=== PATIENT | female | born 1945 | race Caucasian/White ===

== ENCOUNTER 2020-06-07 07:08 | Observation (INO) | payer MEDICARE ==
[2020-06-07] MEDS ORDERED: Acetaminophen 500 MG TAB ONE (07:34)
[2020-06-07 09:41] LABS: #Basophils 0.1 10x3/uL (0.0-0.2); #Eosinphils 0.1 10x3/uL (0.0-0.5); #Monocytes 0.6 10x3/uL (0.0-1.1); #Neutrophils 6.5 10x3/uL (1.5-8.4); %Basophils 0.8 % (0.0-2.0); %Eosinophils 0.9 % (0.0-6.0); %Lymphocytes 8.6 % (18.0-47.0); %Monocytes 6.9 % (0.0-10.0); %Neutrophils 82.2 % (40.0-75.0); Hemoglobin 13.3 g/dL (12.0-15.5); Mean Corpuscular HGB CONC 33.8 g/dL (32.0-36.0); Mean Corpuscular Hemoglobin 31.5 pg (27.0-33.0); Mean Corpuscular Volume 93.1 fl (81.6-98.3); Mean Platelet Volume 12.4 fl (7.4-10.4); Platelet Count 149 10x3/uL (150-450); RBC Distribution Width 13.2 % (11.5-14.5); Red Blood Cell (RBC) Count 4.22 10x6/uL (3.90-5.03); White Blood Cell (WBC) Count 7.9 10x3/uL (3.5-10.5)
[2020-06-07 09:52] LABS: Anion Gap 13 mmol/L (10-20); BUN (Urea Nitrogen) 12 mg/dL (9.8-20.1); Calc. Creatinine Clearance 0 mL/min (70-130); Calcium 8.7 mg/dL (7.8-10.44); Carbon Dioxide 27 mmol/L (23-31); Chloride 107 mmol/L (98-107); Glucose 118 mg/dL (83-110); Potassium 3.7 mmol/L (3.5-5.1); Sodium 143 mmol/L (136-145)
[2020-06-07] MEDS ORDERED: Ondansetron ODT 4 MG TAB PO PRN (10:36)
[2020-06-07] MEDS ORDERED: Senokot S 8.6-50 MG TAB PO PRN (10:36)
[2020-06-07] MEDS ORDERED: Acetaminophen 325 MG TAB PO PRN (10:36)
[2020-06-07] MEDS ORDERED: Cyclobenzaprine 10 MG TAB PO PRN (10:38)
[2020-06-07 10:46] VITALS: BMI 25.4
[2020-06-07] MEDS ORDERED: Acetaminophen 500 MG TAB PO SCH (15:00)
[2020-06-07 17:28] VITALS: BP 176/74; TEMP 99.2
[2020-06-07] MEDS ORDERED: Rosuvastatin 10 MG TAB PO SCH (21:00)
[2020-06-07] MEDS ORDERED: Carvedilol 25 MG TAB PO SCH (21:00)
[2020-06-07] MEDS ORDERED: Losartan Potassium 50 MG TAB PO SCH (21:00)
[2020-06-08] MEDS ORDERED: Multivit, Therapeutic 1 TAB PO SCH (09:00)
[2020-06-08] MEDS ORDERED: Enoxaparin Sodium 40 MG/0.4 ML SYRINGE SC SCH (13:00)
== END 2020-06-07 18:00 | disposition home or self-care (01) ==
LOC: CSHERS 07:08 → CSHTELE 09:00 → INTOOBSV 09:56 → UNDOADMOB 09:56 → UNDODISOB 18:00
PROVIDERS: ADMIT Internal Medicine; ATTEND Internal Medicine
DX: M25.552 Pain in left hip (principal); I10 Essential (primary) hypertension; Z86.73 Personal history of transient ischemic attack (TIA), and cerebral infarction without residual deficits; Z79.899 Other long term (current) drug therapy; Z85.3 Personal history of malignant neoplasm of breast
CPT/HCPCS: 72170; 72192; 80048; 85025; 86140; G0378

== ENCOUNTER 2022-01-15 13:46 | Outpatient (CLI) | payer MEDICARE | END 2022-01-15 13:47 | disposition home or self-care (01) | LOC: CSHULT 13:46 | PROVIDERS: ATTEND Internal Medicine | DX: M79.601 Pain in right arm (principal) ==